=== PATIENT | female | born 1950 | race Caucasian/White ===

== ENCOUNTER 2018-04-05 10:21 | Emergency (ER) | payer BC ==
[2018-04-05] MEDS ORDERED: IPRATROPIUM/ALBUTEROL 0.5-2.5 MG/3 ML AMPUL NEB ONE (11:13)
--- NOTE | 2018-04-05 11:19 | ER Document Report ---
ED General - General Mode of Arrival: Ambulatory Information source: Patient TRAVEL OUTSIDE OF THE [place] IN LAST 30 DAYS: No <MANN SANFORD - Last Filed: 04/05/18 13:59> <CODY MIX - Last Filed: 04/05/18 15:47> - General Chief Complaint: Cough Stated Complaint: COUGHING UP BLOOD Time Seen by Provider: 04/05/18 11:04 Notes: Patient is a 67 year old female with osteoporosis and allergies and a history of migraines presents to the emergency department complaining of coughing up blood onset this morning. Patient states she began coughing in the middle of the night but this morning she noticed blood in her sputum, she states she can not recall the amount of blood she produced. Patient states it feels like she has a lump in her throat. At bedside patient is whispering in order to prevent herself from coughing. Patient denies any recent colds. Patient is currently prescribed Flonase, Flovent, Fosamax and Amitriptyline. (MANN SANFORD) The patient has had the pneumonia shot, and states she got a second one not long ago that was different from the first one she received before. The amoxicillin allergy that is reported is that when she takes amoxicillin she gets pain in her left colon region. She states she was once told it was colitis. She has taken Keflex before without problems. Lab called back with a preliminary on the sputum Gram stain stating it looks like it will be strep pneumonia as they are seeing 4+ encapsulated gram- positive diplococci. She will be started on Rocephin IV at this time. (CODY MIX) - Related Data Allergies/Adverse Reactions: amoxicillin Allergy (Verified 04/05/18 10:22) naproxen Allergy (Verified 04/05/18 10:22) Past Medical History - General Information source: Patient - Social History Smoking Status: Never Smoker Cigarette use (# per day): No Chew tobacco use (# tins/day): No Smoking Education Provided: No Frequency of alcohol use: Rare Drug Abuse: None Family History: Reviewed & Not Pertinent Past Surgical History: Reports: Hx Tonsillectomy <MANN SANFORD - Last Filed: 04/05/18 13:59> Review of Systems - Review of Systems Constitutional: No symptoms reported EENT: No symptoms reported Cardiovascular: No symptoms reported Respiratory: See HPI, Cough Gastrointestinal: No symptoms reported Genitourinary: No symptoms reported Female Genitourinary: No symptoms reported Musculoskeletal: No symptoms reported Skin: No symptoms reported Hematologic/Lymphatic: No symptoms reported Neurological/Psychological: No symptoms reported -: Yes All other systems reviewed and negative <MANN SANFORD - Last Filed: 04/05/18 13:59> Physical Exam - General General appearance: Appears well, Alert, Other - Whispering in order to prevent coughing - HEENT Head: Normocephalic, Atraumatic Eyes: Normal Conjunctiva: Normal Extraocular movements intact: Yes Pupils: PERRL Mucous membranes: Normal Neck: Normal - Respiratory Respiratory status: No respiratory distress Chest status: Nontender Breath sounds: Rhonchi Chest palpation: Normal - Cardiovascular Rhythm: Regular Heart sounds: Normal auscultation Murmur: No Friction rub: No Gallop: None auscultated - Abdominal Inspection: Normal - Back Back: Normal - Extremities General upper extremity: Normal ROM General lower extremity: Normal ROM - Neurological Neuro grossly intact: Yes Cognition: Normal Orientation: AAOx4 [place] Coma Scale Eye Opening: Spontaneous Arik Coma Scale Verbal: Oriented [place] Coma Scale Motor: Obeys Commands Ar[place]oles Coma Scale Total: 15 Speech: Normal - Psychological Associated symptoms: Normal affect, Normal mood - Skin Skin Temperature: Warm Skin Moisture: Dry Skin Color: Normal <MANN SANFORD - Last Filed: 04/05/18 13:59> <CODY MIX - Last Filed: 04/05/18 15:47> - Vital signs Vitals: Temp Pulse Resp BP Pulse Ox 98.0 F 83 20 117/75 97 04/05/18 10:26 04/05/18 10:26 04/05/18 10:26 04/05/18 10:26 04/05/18 10:26 - Respiratory Notes: Patient coughs thick white sputum with streaks of bright red blood. (MANN SANFORD) Course - Laboratory Result Diagrams: 04/05/18 11:38 04/05/18 11:38 <MANN SANFORD - Last Filed: 04/05/18 13:59> - Laboratory Result Diagrams: 04/05/18 11:38 04/05/18 11:38 - Diagnostic Test Radiology reviewed: Image reviewed, Reports reviewed - Chest x-ray is read as chronic bronchiectasis in the right upper lobe near the minor fissure, no infiltrates noted. <DOMINGUEZCODY Anne - Last Filed: 04/05/18 15:47> - Vital Signs Vital signs: Temp Pulse Resp BP Pulse Ox 99 F 84 16 121/70 97 04/05/18 14:52 04/05/18 14:52 04/05/18 14:52 04/05/18 14:52 04/05/18 14:52 Discharge <MANN SANFORD - Last Filed: 04/05/18 13:59> <DOMINGUEZCODY Anne - Last Filed: 04/05/18 15:47> - Discharge Clinical Impression: Bronchitis, Hemoptysis, Streptococcus pneumoniae infection Condition: Stable Disposition: HOME, SELF-CARE Additional Instructions: Bronchitis: You have acute bronchitis. This disease is an infection or inflammation of the air passageways in your lungs. Symptoms usually include cough, low grade fever, shortness of breath, and wheezing. The cough usually persists for a couple of weeks. Most cases of bronchitis get better without antibiotics. We prescribe antibiotics when we believe bacteria are damaging your airways, or if there's high risk the bronchitis will worsen into pneumonia. Increase your fluid intake. A cool mist humidifier may make your lungs more comfortable. An expectorant (cough medicine that loosens phlegm) can help. If you smoke, STOP!!! Recovery from bronchitis can be somewhat slow, but you should see improvement within a day or two. Repeated episodes of bronchitis may result in lung damage -- for example, chronic bronchitis, recurrent pneumonias, or emphysema. Call the doctor if you develop increasing fever, shortness of breath, chest pain, bloody sputum, or otherwise worsen. If you have not improved at all after several days, contact the physician. Hemoptysis: Hemoptysis (coughing up blood) can occur with many different diseases. Most commonly, it's due to an infection such as bronchitis. Although alarming, the presence of blood in the phlegm doesn't change the treatment of bronchitis or pneumonia. The physician has evaluated you to see if there is evidence of an underlying problem requiring further evaluation. If he has recommended further tests, you should follow up as instructed. Hemoptysis without an identifiable cause can be due to tumors or hidden infections. Return for a recheck if the blood increases greatly in amount, or if you develop shortness of breath, high fever, severe chest pain, or other alarming new symptoms. Take the medication as prescribed. Drink plenty of fluids and get plenty of rest. Try Robitussin-DM to help suppress your cough and loosen up the mucus. Follow-up with your medical doctor when you return home--take copies of your lab work and the chest x-ray with you. RETURN TO THE EMERGENCY ROOM IF ANY NEW OR WORSENING SYMPTOMS. Prescriptions: Levofloxacin [Levaquin 750 mg Tablet] 750 mg PO DAILY #5 tablet Scribe Attestation: 04/05/18 11:40 I personally performed the services described in the documentation, reviewed and edited the documentation which was dictated to the scribe in my presence, and it accurately records my words and actions. (CODY MIX)
[2018-04-05 11:50] LABS: ABSOLUTE BASOPHILS # (AUTO) 0.1 10^3/uL (0.0-0.2); ABSOLUTE EOSINOPHILS # (AUTO) 0.2 10^3/uL (0.0-0.6); ABSOLUTE LYMPHOCYTES (AUTO) 1.8 10^3/uL (0.5-4.7); ABSOLUTE MONOCYTES (AUTO) 0.8 10^3/uL (0.1-1.4); ABSOLUTE NEUT (AUTO) 5.6 10^3/uL (1.7-8.2); EOSINOPHILS % (AUTO) 1.9 % (0-6); HEMATOCRIT 40.5 % (36.0-47.0); HEMOGLOBIN 13.9 g/dL (12.0-15.5); MEAN CORPUSCULAR HEMOGLOBIN 29.9 pg (27.0-33.4); MEAN CORPUSCULAR HGB CONC 34.2 g/dL (32.0-36.0); MEAN CORPUSCULAR VOLUME 88 fl (80-97); MONOCYTES % (AUTO) 9.1 % (3-13); PLATELET COUNT 272 10^3/uL (150-450); RED BLOOD COUNT 4.63 10^6/uL (3.72-5.28); RED CELL DISTRIBUTION WIDTH 12.8 % (11.5-14.0); TOTAL CELLS COUNTED % (AUTO) 100 %; WHITE BLOOD COUNT 8.4 10^3/uL (4.0-10.5)
[2018-04-05 12:04] LABS: ALANINE AMINOTRANSFERASE 30 U/L (9-52); ALKALINE PHOSPHATASE 58 U/L (38-126); ANION GAP 9 (5-19); ASPARTATE AMINO TRANSFERASE 31 U/L (14-36); BILIRUBIN,DIRECT 0.2 mg/dL (0.0-0.4); BLOOD UREA NITROGEN 13 mg/dL (7-20); CALCIUM 9.2 mg/dL (8.4-10.2); CARBON DIOXIDE 30 mmol/L (22-30); CHLORIDE 105 mmol/L (98-107); GLUCOSE 86 mg/dL (75-110); SODIUM 143.6 mmol/L (137-145); TOTAL PROTEIN 6.8 g/dL (6.3-8.2)
--- NOTE | 2018-04-05 12:06 | RADIOLOGY REPORT (SQ) ---
EXAM DESCRIPTION: CHEST 2 VIEWS COMPLETED DATE/TIME: 04/05/2018 11:53 am REASON FOR STUDY: Bronchitis with hemoptysis COMPARISON: None. EXAM PARAMETERS: NUMBER OF VIEWS: two views TECHNIQUE: Digital Frontal and Lateral radiographic views of the chest acquired. RADIATION DOSE: NA LIMITATIONS: none FINDINGS: LUNGS AND PLEURA: Lungs are hyperinflated and hyperlucent from obstructive disease. Proba ble chronic bronchiectasis with volume loss and scarring in the right upper lobe near the minor fissu re. Biapical pleuroparenchymal scarring is present. No definite acute infiltrates. No pleural effusion or pneumothorax. MEDIASTINUM AND HILAR STRUCTURES: No masses or contour abnormalities. HEART AND VASCULAR STRUCTURES: Heart normal size. No evidence for failure. BONES: Osteoporotic HARDWARE: Bilateral breast implants post mastectomies OTHER: No other significant finding. IMPRESSION: No gross acute findings Probable chronic bronchiectasis in the right upper lobe near the minor fissure. No old films are joanne ilable for comparison. TECHNICAL DOCUMENTATION: JOB ID: [id number] [employer]- All Rights Reserved Reading location - IP/workstation name: [email or web address]
[2018-04-05] MEDS ORDERED: CEFTRIAXONE 1 GM/D5W RTU 1 GM/50 ML RTUPB IV ONE (14:44)
[2018-04-05 16:32] VITALS: BP 104/68
== END 2018-04-05 16:24 | disposition home or self-care (01) ==
LOC: ER 10:21
DX: J40 Bronchitis, not specified as acute or chronic (principal); R04.2 Hemoptysis; B95.3 Streptococcus pneumoniae as the cause of diseases classified elsewhere
CPT/HCPCS: 94640; 99284; 96365; 36415; 87070; 87205; 85025; 80053; 71046; J0696; J7620